=== PATIENT | male | born 1990 | race Caucasian/White ===

== ENCOUNTER 2023-09-03 11:57 | Emergency (ER) | payer OTHER ==
[2023-09-03] MEDS ORDERED: SODIUM CHLORIDE 0.9% 1,000 ML IV STA (12:26)
[2023-09-03] MEDS ORDERED: MORPHINE SULFATE 4 MG/ML SYRINGE IV STA (12:27)
--- NOTE | 2023-09-03 12:30 | ED ---
General Adult HPI - General Chief complaint: Fall Stated complaint: Fall, Head Injury Time Seen by Provider: 09/03/23 12:11 Source: patient, family Mode of arrival: ambulatory Limitations: no limitations - History of Present Illness Initial comments: Dictation was produced using [employer] dictation software. please excuse any grammatical, word or spelling errors. Chief Complaint: 32-year-old male presents to the emergency department after fall History of Present Illness: 32-year-old male today fell off a ladder. 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 He lost his footing slipped and fell landing on his left back. He did hit his head. Complains of mild headache. Does not take anticoagulation medications. Pain. No extremity pain. He states that most of his pain is in his lower left back. his is tetanus is updated with the last 10 years. The ROS documented in this emergency department record has been reviewed and confirmed by me. Those systems with pertinent positive or negative responses have been documented in the HPI. All other systems are other negative and/or noncontributory. - Related Data Allergies Allergy/AdvReac Type Severity Reaction Status Date / Time No Known Allergies Allergy Verified 09/03/23 12:07 Review of Systems ROS Statement: Those systems with pertinent positive or pertinent negative responses have been documented in the HPI. ROS Other: All systems not noted in ROS Statement are negative. Past Medical History Past Medical History: No Reported History Past Surgical History: No Surgical Hx Reported Smoking Status: Never smoker General Exam - General Exam Comments Initial Comments: PHYSICAL EXAM: General Impression: Alert and oriented x3, acute distress secondary to pain HEENT: Left periorbital eyelid laceration to the upper eyelid, extra-ocular movements intact, pupils equal and reactive to light bilaterally, mucous membranes moist. Cardiovascular: Heart regular rate and rhythm Chest: Able to complete full sentences, no retractions, no tachypnea Abdomen: abdomen soft, non-tender, non-distended, no organomegaly Musculoskeletal: Pulses present and equal in all extremities, no peripheral edema Motor: no focal deficits noted Neurological: CN II-XII grossly intact, no focal motor or sensory deficits noted Skin: Intact with no visualized rashes Psych: Normal affect and mood Limitations: no limitations Course Vital Signs 09/03/23 09/03/23 12:05 13:38 Temperature 98 F 97 F L Pulse Rate 56 L 51 L Respiratory 16 22 Rate Blood Pressure 94/60 142/69 O2 Sat by Pulse 93 L 100 Oximetry - Reevaluation(s) Reevaluation #1: 09/03/23 13:17 So I was notified by furniture repair technician that patient had significant abnormalities to his CT abdomen and pelvis. I went to review the films or seems to be a lot of fluid around the left kidney with lacerated left kidney. There is suspicion for abdominal organ laceration. Patient case was discussed case with Dr. Mcdaniel who is evaluating patient at the bedside. I spoke with urology states that patient is unable to be cared for here at this institution and should be transferred to a higher level of care. Case was discussed with Dr. Mathews conservation science officer for trauma surgery or [facility]. He will notify us after he has further discussion with his team. Reevaluation #2: 09/03/23 13:[address] Shay over the phone approximately 18 p.m. that they will accept the patient for ER to ER transfer. Trauma surgery Dr. Mcdaniel recommended patient be given 2 units of emergency release blood Medical Decision Making - Medical Decision Making Was pt. sent in by a medical professional or institution (, PA, HI LIFT OPERATOR, urgent care, hospital, or intermediate...) When possible be specific @ -No Did you speak to anyone other than the patient for history (EMS, parent, family, police, friend...)? What history was obtained from this source @ -No Did you review nursing and triage notes (agree or disagree)? Why? @ -I reviewed and agree with nursing and triage notes Were old charts reviewed (outside hosp., previous admission, EMS record, old EKG, old radiological studies, urgent care reports/EKG's, intermediate records)? Report findings @ -No old charts were reviewed Differential Diagnosis (chest pain, altered mental status, abdominal pain women, abdominal pain men, vaginal bleeding, musculoskeletal, weakness, fever, dyspnea, syncope, headache, dizziness, GI bleed, back pain, seizure, CVA, palpatations, mental health)? @ -not applicable EKG interpreted by me (3pts min.). @ -My EKG interpretation: Ventricular rate 47, bradycardia, MS 157, QRS 89, QTc 388. Overall, this EKG is unremarkable X-rays interpreted by me (1pt min.). @ -X-ray and pelvis x-ray shows no acute osseous abnormalities. CT interpreted by me (1pt min.). @ -CT imaging of the chest and pelvis shows ruptured left kidney U/S interpreted by me (1pt. min.). @ -None done What testing was considered but not performed or refused? (CT, X-rays, U/S, labs)? Why? @ -None What meds were considered but not given or refused? Why? @ -None Did you discuss the management of the patient with other professionals (professionals i.e. DrSharita, PA, HI LIFT OPERATOR, lab, RT, psych nurse, social security benefits interviewer, mines safety engineer, teacher, home school liaison officer, rn case manager hospice)? Give summary @ -See above Was smoking cessation discussed for >3mins.? @ -No Was critical care preformed (if so, how long)? @ -Yes, 77 minutes Were there social determinants of health that impacted care today? How? (Homelessness, low income, unemployed, alcoholism, drug addiction, transportation, low edu. Level, literacy, decrease access to med. care, penitentiary, rehab)? @ -No Was there de-escalation of care discussed even if they declined (Discuss DNR or withdrawal of care, Hospice)? DNR status @ -No What co-morbidities impacted this encounter? (DM, HTN, Smoking, COPD, CAD, Cancer, CVA, ARF, Chemo, Hep., AIDS, mental health diagnosis, sleep apnea, morbid obesity)? @ -None Was patient admitted / discharged? Hospital course, mention meds given and route, prescriptions, significant lab abnormalities, going to OR and other pertinent info. @ -32-year-old male presents to emergency department after fall off a ladder. Patient initially had stable vital signs however after CT imaging was performed there is large left perinephric hematoma concerning for ruptured left kidney and left ruptured left renal artery. Patient case escalated to a trauma level I.. Initial blood pressure 94/60. Repeat blood pressure 142/69. Laboratory evaluation is leukocytosis 9.5. Cardiac panel is negative. Metabolic panel is negative. Alcohol is negative. Patient ordered for 2 units of uncrossed blood as an emergency release for recognition by trauma surgery. Patient will be transferred lights and sirens to [facility]. Excepting trauma surgeon is Dr. Keyes. Did speak to the emergency department at [facility] who is aware. Facial laceration was not repaired due to not further delay transfer any critical patient. Undiagnosed new problem with uncertain prognosis? @ -No Drug Therapy requiring intensive monitoring for toxicity (Heparin, Nitro, Insulin, Cardizem)? @ -No Were any procedures done? @ -No Diagnosis/symptom? Acute, or Chronic, or Acute on Chronic? Uncomplicated (without systemic symptoms) or Complicated (systemic symptoms)? @ -Ruptured kidney status post fall Side effects of treatment? @ -No Exacerbation, Progression, or Severe Exacerbation? @ -No Poses a threat to life or bodily function? How? (Chest pain, [place], [place], pneumonia, PE, COPD, DKA, ARF, appy, cholecystitis, CVA, Diverticulitis, Homicidal, Suicidal, threat to staff... and all critical care pts) @ -yes - Lab Data Result diagrams: 09/03/23 12:48 09/03/23 12:48 Lab Results 09/03/23 09/03/23 09/03/23 Range/Units 12:48 12:48 12:48 WBC 19.5 H (3.8-10.6) k/uL RBC 4.38 (4.30-5.90) m/uL Hgb 13.1 (13.0-17.5) gm/dL Hct 39.8 (39.0-53.0) % MCV 90.8 (80.0-100.0) fL MCH 29.9 (25.0-35.0) pg MCHC 33.0 (31.0-37.0) g/dL RDW 12.9 (11.5-15.5) % Plt Count 307 (150-450) k/uL MPV 6.8 Neutrophils % 86 % Lymphocytes % 9 % Monocytes % 4 % Eosinophils % 0 % Basophils % 0 % Neutrophils # 16.7 H (1.3-7.7) k/uL Lymphocytes # 1.7 (1.0-4.8) k/uL Monocytes # 0.8 (0-1.0) k/uL Eosinophils # 0.0 (0-0.7) k/uL Basophils # 0.1 (0-0.2) k/uL PT 11.1 (10.0-12.5) sec INR 1.0 (<1.2) APTT 20.5 L (22.0-30.0) sec Sodium 137 (137-145) mmol/L Potassium 3.9 (3.5-5.1) mmol/L Chloride 102 (98-107) mmol/L Carbon Dioxide 22 (22-30) mmol/L Anion Gap 13 mmol/L BUN 22 H (9-20) mg/dL Creatinine 1.06 (0.66-1.25) mg/dL Est GFR (CKD-EPI)AfAm >90 (>60 ml/min/1.73 sqM) Est GFR (CKD-EPI)NonAf >90 (>60 ml/min/1.73 sqM) Glucose 138 H (74-99) mg/dL Calcium 9.5 (8.4-10.2) mg/dL Total Bilirubin 0.5 (0.2-1.3) mg/dL AST 42 (17-59) U/L ALT 43 (4-49) U/L Alkaline Phosphatase 72 (38-126) U/L Troponin I (0.000-0.034) ng/mL Total Protein 7.1 (6.3-8.2) g/dL Albumin 4.6 (3.5-5.0) g/dL Serum Alcohol <10 mg/dL Blood Type Recheck Bld Type Recheck Status Spec Expiration Date 09/03/23 09/03/23 Range/Units 12:48 13:00 WBC (3.8-10.6) k/uL RBC (4.30-5.90) m/uL Hgb (13.0-17.5) gm/dL Hct (39.0-53.0) % MCV (80.0-100.0) fL MCH (25.0-35.0) pg MCHC (31.0-37.0) g/dL RDW (11.5-15.5) % Plt Count (150-450) k/uL MPV Neutrophils % % Lymphocytes % % Monocytes % % Eosinophils % % Basophils % % Neutrophils # (1.3-7.7) k/uL Lymphocytes # (1.0-4.8) k/uL Monocytes # (0-1.0) k/uL Eosinophils # (0-0.7) k/uL Basophils # (0-0.2) k/uL PT (10.0-12.5) sec INR (<1.2) APTT (22.0-30.0) sec Sodium (137-145) mmol/L Potassium (3.5-5.1) mmol/L Chloride (98-107) mmol/L Carbon Dioxide (22-30) mmol/L Anion Gap mmol/L BUN (9-20) mg/dL Creatinine (0.66-1.25) mg/dL Est GFR (CKD-EPI)AfAm (>60 ml/min/1.73 sqM) Est GFR (CKD-EPI)NonAf (>60 ml/min/1.73 sqM) Glucose (74-99) mg/dL Calcium (8.4-10.2) mg/dL Total Bilirubin (0.2-1.3) mg/dL AST (17-59) U/L ALT (4-49) U/L Alkaline Phosphatase (38-126) U/L Troponin I <0.012 (0.000-0.034) ng/mL Total Protein (6.3-8.2) g/dL Albumin (3.5-5.0) g/dL Serum Alcohol mg/dL Blood Type Recheck No Previous Record Bld Type Recheck Status CABO Indicated Spec Expiration Date 09/06/20232299 Disposition Clinical Impression: Fractured kidney Disposition: OTHER INSTITUTION NOT DEFINED Condition: Critical Referrals: None,Stated [Primary Care Provider] - 1-2 days Time of Disposition: 14:04 - Out of Hospital Transfer - Req. Specs Out of Hospital Transfer - Requested Specifics: Other Emergency Center ([facility])
[2023-09-03] MEDS ORDERED: LIDOCAINE 1%-EPI 1:100,000 20 ML VIAL SQ STA (12:57)
[2023-09-03 13:00] LABS: Basophils # (A) 0.1 k/uL (0-0.2); Basophils % (A) 0 %; Eosinophils % (A) 0 %; HCT 39.8 % (39.0-53.0); HGB 13.1 gm/dL (13.0-17.5); Lymphocytes # (A) 1.7 k/uL (1.0-4.8); Lymphocytes % (A) 9 %; MCH 29.9 pg (25.0-35.0); MCV 90.8 fL (80.0-100.0); Mean Platelet Volume 6.8; Monocytes # (A) 0.8 k/uL (0-1.0); Monocytes % (A) 4 %; Neutrophils # (A) 16.7 k/uL (1.3-7.7); Neutrophils % (A) 86 %; Platelet Count 307 k/uL (150-450); RBC 4.38 m/uL (4.30-5.90); RDW 12.9 % (11.5-15.5); WBC 19.5 k/uL (3.8-10.6)
[2023-09-03] MEDS ORDERED: ONDANSETRON 4 MG/2 ML VIAL IVP STA (13:01)
[2023-09-03] MEDS ORDERED: TRANEXAMIC 1,000 MG/100ML-NACL 1,000 MG in SALINE 1 100ML.BAG IV STA (13:04)
[2023-09-03 13:12] LABS: ALT 43 U/L (4-49); AST 42 U/L (17-59); African American GFR (CKD) >90 (>60 ml/min/1.73 sqM); Albumin 4.6 g/dL (3.5-5.0); Alcohol <10 mg/dL; Alkaline Phosphatase 72 U/L (38-126); Anion Gap 13 mmol/L; Blood Urea Nitrogen 22 mg/dL (9-20); Calcium 9.5 mg/dL (8.4-10.2); Carbon Dioxide 22 mmol/L (22-30); Chloride 102 mmol/L (98-107); Glucose 138 mg/dL (74-99); Non-African American GFR(CKD) >90 (>60 ml/min/1.73 sqM); Potassium 3.9 mmol/L (3.5-5.1); Sodium 137 mmol/L (137-145); Total Bilirubin 0.5 mg/dL (0.2-1.3); Total Protein 7.1 g/dL (6.3-8.2)
[2023-09-03 13:13] LABS: Prothrombin Time 11.1 sec (10.0-12.5)
[2023-09-03 13:16] LABS: Partial Thromboplastin Time 20.5 sec (22.0-30.0)
--- NOTE | 2023-09-03 13:34 | CT ---
EXAMINATION TYPE: CT brain cspine wo con CT DLP: 1699.2 mGycm, Automated exposure control for dose reduction was used. DATE OF EXAM: 09/03/2023 1:09 PM COMPARISON: 08/25/2023 CLINICAL INDICATION:Male, 32 years old with history of trauma; fall TECHNIQUE: Brain: Multiple axial CT images of the brain were obtained without IV contrast. Cspine: Axial CT images from the skull base to the inferior aspect of T2 we obtained without intraven ous contrast. Coronal and sagittal reformatted images were also reviewed. FINDINGS: Brain: Extra-axial spaces: No abnormal extra-axial fluid collections. Ventricular system: Within normal limits Cerebral parenchyma: Low density area within the left frontal lobe and extends to the mason matter. Wh ich is new from 08/25/2023. No acute intraparenchymal hemorrhage or mass effect. The remainder of th e mason-white junctions are well differentiated. Cerebellum: Unremarkable. Mass effect: No evidence of midline shift. Intracranial vasculature: Atherosclerotic calcifications of the intracranial vessels. Soft tissues: Normal. Calvarium/osseous structures: No depressed skull fracture. Paranasal sinuses and mastoid air cells: Clear. Visualized orbits: Bilateral aphakia. Cervical spine: Fracture: None. Osseous structures: Minimal degenerative disc disease changes with endplate spurring and disc osteoph yte complex's. Vertebral alignment: Within normal limits. Spinal canal/Neural Foramina: No evidence of significant spinal canal narrowing. No evidence for sign ificant neural foraminal stenosis. Neck soft tissues: Prevertebral soft tissues are within normal limits. Other: The airway is patent. The lung apices are clear. Azygous fissure noted in the right upper lung . IMPRESSION: 1. New from 08/25/2023 left frontal lobe low-density area favored represent CVA, new since 3. Further evaluation with MRI may be of benefit. 2. No evidence for intracranial hemorrhage. 3. No evidence of cervical spine fracture. 4. Normal multilevel degenerative disc disease.
[2023-09-03 13:39] VITALS: PULSE 51; TEMP 97
--- NOTE | 2023-09-03 13:42 | XR ---
EXAMINATION TYPE: XR chest 1V portable DATE OF EXAM: 09/03/2023 1:11 PM CLINICAL INDICATION:Male, 32 years old with history of trauma; H COMPARISON: None TECHNIQUE: XR chest 1V portable Frontal view of the chest. FINDINGS: Lungs/Pleura: There is no evidence of pleural effusion, focal consolidation, or pneumothorax. Pulmonary vascularity: Unremarkable. Heart/mediastinum: Cardiomediastinal silhouette is unremarkable. Musculoskeletal: No acute osseous pathology. IMPRESSION: No acute cardiopulmonary disease/process.
--- NOTE | 2023-09-03 13:55 | CT ---
EXAMINATION TYPE: CT ChestAbdPelvis w con CT DLP: 1482.2 mGycm, Automated exposure control for dose reduction was used. DATE OF EXAM: 09/03/2023 1:10 PM COMPARISON: None. CLINICAL INDICATION:Male, 32 years old with history of trauma; [facility], Fall Technique: CT ChestAbdPelvis w con; Multiple axial images were obtained. Two-dimensional coronal and sagittal reconstructions were obtained. Contrast used:100 mL of Isovue 300 with IV Contrast, Oral contrast used: without Oral Contrast Findings: CHEST: LUNGS/ PLEURA: The lung parenchyma appears unremarkable. AIRWAY: Patent and unremarkable. HEART: Size within normal limits. MEDIASTINUM: No gross evidence of adenopathy. VASCULATURE: No aortic aneurysm. MUSCULOSKELETAL: No acute osseous abnormalities. SOFT TISSUES/LYMPH NODES: Unremarkable. LOWER NECK: No significant findings. ABDOMEN: ABDOMEN LIVER: Unremarkable GALLBLADDER AND BILE DUCTS: Unremarkable. PANCREAS: Unremarkable. SPLEEN: Unremarkable. ADRENAL GLANDS: Unremarkable. KIDNEYS AND URETERS: Large left hematoma around the left kidney with active extravasation on series 5 02 image 47. There is nonperfusion of the inferior aspect of left kidney with appreciated on series 5 02 image 39. PELVIS BLADDER: Unremarkable REPRODUCTIVE: Unremarkable. ABDOMEN & PELVIS STOMACH AND BOWEL: No evidence of bowel obstruction. PERITONEUM: No evidence of pneumoperitoneum or free fluid. VASCULATURE: No evidence of aortic aneurysm. MUSCULOSKELETAL: No acute osseous abnormalities LYMPH NODES: No gross evidence for lymphadenopathy. SOFT TISSUE/ABDOMINAL WALL: Unremarkable IMPRESSION: 1. There is a AAST grade 5 injury to the left kidney with nonperfusion of the inferior left kidney s eries 502 image 39. There is active extravasation present extending inferiorly. There is large left p erinephric hematoma. 2. No fractures visualized are additional organ injury identified. Findings communicated to Dr. Prudencio Morales DO on 09/03/2023 1:[address] Booker Roe.
--- NOTE | 2023-09-03 13:58 | XR ---
EXAMINATION TYPE: XR pelvis AP view DATE OF EXAM: 09/03/2023 1:11 PM CLINICAL INDICATION:Male, 32 years old with history of Trauma; [facility] COMPARISON: CT same day TECHNIQUE: The pelvis was examined in a single projection. FINDINGS: There is no evidence of fracture or dislocation. There is no soft tissue abnormality. No a bnormal calcifications are present. The spine appears intact. The hips appear intact. No significant degeneration. IMPRESSION: No acute osseous pathology.
--- NOTE | 2023-09-03 14:50 | P.GSCN ---
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 She narayan ded on his left hand side on a cement floating. Patient also struck his head. Denies loss of consciousness. Having pain left lower back. We were contacted after CAT scan was performed showing a impressive left kidney injury. Patient was initially not a priority trauma but switched to level I after the CAT scan was noted. Heart rate in the 50s. Blood pressure was as low as 94 systolic. Patient awake and alert throughout his ER stay. ER staff spoke with urology and they were not comfortable handling this traumatic injury. They advised transfer for that reason. Review of Systems The patient denies any acute changes in vision or hearing, no dysphagia or odyn ophagia, no chest pain or shortness of breath, no dysuria or hematuria, no headache, no runny nose, no rectal bleeding or melena, no unexplained weight loss Past Medical History Past Medical History: No Reported History Past Surgical History: No Surgical Hx Reported Smoking Status: Never smoker Medications and Allergies Allergies Allergy/AdvReac Type Severity Reaction Status Date / Time No Known Allergies Allergy Verified 09/03/23 12:07 Surgical - Exam Vital Signs Temp Pulse Resp BP Pulse Ox 98 F 56 L 16 94/60 93 L 09/03/23 12:05 09/03/23 12:05 09/03/23 12:05 09/03/23 12:05 09/03/23 12:05 Physical exam: General: Well-developed, well-nourished HEENT: Small superficial laceration left eyebrow, sclerae nonicteric Chest: Mild posterior left chest wall tenderness, breath sounds equal Abdomen: Mild left upper quadrant tenderness and left flank tenderness, nondistended Extremities: No edema Neuro: Alert and oriented Results - Labs 09/03/23 12:48 09/03/23 12:48 Abnormal Lab Results - Last 24 Hours (Table) 09/03/23 09/03/23 09/03/23 Range/Units 12:48 12:48 12:48 WBC 19.5 H (3.8-10.6) k/uL Neutrophils # 16.7 H (1.3-7.7) k/uL APTT 20.5 L (22.0-30.0) sec BUN 22 H (9-20) mg/dL Glucose 138 H (74-99) mg/dL Crossmatch 09/03/23 Range/Units 13:00 WBC (3.8-10.6) k/uL Neutrophils # (1.3-7.7) k/uL APTT (22.0-30.0) sec BUN (9-20) mg/dL Glucose (74-99) mg/dL Crossmatch See Detail Diabetes panel 09/03/23 Range/Units 12:48 Sodium 137 (137-145) mmol/L Potassium 3.9 (3.5-5.1) mmol/L Chloride 102 (98-107) mmol/L Carbon Dioxide 22 (22-30) mmol/L BUN 22 H (9-20) mg/dL Creatinine 1.06 (0.66-1.25) mg/dL Glucose 138 H (74-99) mg/dL Calcium 9.5 (8.4-10.2) mg/dL AST 42 (17-59) U/L ALT 43 (4-49) U/L Alkaline Phosphatase 72 (38-126) U/L Total Protein 7.1 (6.3-8.2) g/dL Albumin 4.6 (3.5-5.0) g/dL Calcium panel 09/03/23 Range/Units 12:48 Calcium 9.5 (8.4-10.2) mg/dL Albumin 4.6 (3.5-5.0) g/dL Pituitary panel 09/03/23 Range/Units 12:48 Sodium 137 (137-145) mmol/L Potassium 3.9 (3.5-5.1) mmol/L Chloride 102 (98-107) mmol/L Carbon Dioxide 22 (22-30) mmol/L BUN 22 H (9-20) mg/dL Creatinine 1.06 (0.66-1.25) mg/dL Glucose 138 H (74-99) mg/dL Calcium 9.5 (8.4-10.2) mg/dL Adrenal panel 09/03/23 Range/Units 12:48 Sodium 137 (137-145) mmol/L Potassium 3.9 (3.5-5.1) mmol/L Chloride 102 (98-107) mmol/L Carbon Dioxide 22 (22-30) mmol/L BUN 22 H (9-20) mg/dL Creatinine 1.06 (0.66-1.25) mg/dL Glucose 138 H (74-99) mg/dL Calcium 9.5 (8.4-10.2) mg/dL Total Bilirubin 0.5 (0.2-1.3) mg/dL AST 42 (17-59) U/L ALT 43 (4-49) U/L Alkaline Phosphatase 72 (38-126) U/L Total Protein 7.1 (6.3-8.2) g/dL Albumin 4.6 (3.5-5.0) g/dL Assessment and Plan (1) Fractured kidney Narrative/Plan: 32-year-old male with left kidney laceration after a fall. Spoke with trauma surgeon at [facility]. They were reaching out to their urology team as well. They accepted transfer. Agree with plans for blood transfusion given the systolic blood pressure at one point of 90 and the plans for transfer. Current Visit: Yes Status: Acute Code(s): S37.099A - OTHER INJURY OF UNSPECI FIED KIDNEY, INITIAL ENCOUNTER SNOMED Code(s): 25655692
[2023-09-03 19:05] VITALS: BP 140/72; RESP 20
== END 2023-09-03 13:44 | disposition other institution (70) ==
LOC: EC 11:57
DX: S01.112A Laceration without foreign body of left eyelid and periocular area, initial encounter (principal); S37.012A Minor contusion of left kidney, initial encounter; W11.XXXA Fall on and from ladder, initial encounter
CPT/HCPCS: 99291; 99292; 96374; 96375 ×2; 36430; 86900; 86901; 80053; 84484; 85025; 85610; 85730; 86850; 86920; 80320; 72170; 71045; 72125; 70450; 71260; 74177; P9016; J2270; J2405; Q9967; 36415

== ENCOUNTER → 2023-09-28 | Outpatient (CLI) | payer OTHER ==
--- NOTE | 2023-09-29 09:46 | US ---
EXAMINATION TYPE: US kidneys/renal and bladder DATE OF EXAM: 09/28/2023 COMPARISON: CT 09/03/2023 CLINICAL INDICATION: Male, 32 years old with history of Z90.5 ACQUIRED ABSENCE OF KIDNEY; F/U left ne phrectomy Sep 04. EXAM MEASUREMENTS: Right Kidney: 11.9 x 4.7 x 5.8 cm Left Kidney: Surgically absent Right Kidney: Appeared wnl, lower pole gassed out Left Kidney: Surgically absent, left flank/renal fossa appeared wnl Bladder: wnl Bilateral Jets seen: No Spleen 11.1 cm. IMPRESSION: 1. Status post left nephrectomy. The left renal fossa appears clear by ultrasound. The spleen is seen in the left upper quadrant measuring 11.1 cm, within normal limits. 2. No hydronephrosis on the right.
== END | disposition home or self-care (01) ==
LOC: RADUSWWP 16:13
PROVIDERS: ATTEND Internal Medicine
DX: Z90.5 Acquired absence of kidney (principal)
CPT/HCPCS: 76770